=== PATIENT | male | born 2000 ===

== ENCOUNTER 2022-06-06 23:59 | Emergency (ER) | payer BC, SELFPAY ==
[2022-06-07 00:04] VITALS: PULSE 87; RESP 11; O2SAT 100
[2022-06-07 00:05] VITALS: BP 143/92; PULSE 81; RESP 18; TEMP 36.8; O2SAT 100
--- NOTE | 2022-06-07 00:11 | ED.ARRPALP ---
HPI - Arrhythmia/Palpitations General Chief Complaint: Arrhythmia/Palpitations Stated Complaint: cp Time Seen by Provider: 06/07/22 00:01 Source: patient and EMS Mode of arrival: EMS History of Present Illness HPI narrative: Patient is a 21-year-old male who was brought to the emergency department by EMS after having an episode of SVT with a heart rate of approximately to 20 while at work. When EMS arrived they had him do a vagal maneuver and he converted back to sinus rhythm again. Patient states he has had episodes like this off and on for the past several years. They happened occasionally. Not associated with any activities. He states that they last anywhere from a couple minutes to several hours. He has been evaluated in the past but he states that nothing has ever been seen on any of his testing and he has never been in to see cardiology nor had a Holter monitor. When the symptoms occur he does get somewhat lightheaded and having shortness of breath and some chest pain. He currently is asymptomatic. Related Data Allergies Allergy/AdvReac Type Severity Reaction Status Date / Time peanut Allergy Verified 06/07/22 00:05 Review of Systems Cardiovascular Cardiovascular: Reports system reviewed and no additional complaints, except as documented Respiratory Respiratory: Reports system reviewed and no additional complaints, except as documented Hematologic/Lymphatic On Anticoagulants: No Patient History Medical History Palpitations Social History Smoking Status: Current some day smoker Smoking Status: Current some day smoker tobacco type: vaping alcohol intake frequency: holidays/special occasions only Substance Use Type: does not use Exam Initial Vital Signs Initial Vital Signs: Vital Signs Pulse Rate 87 06/07/22 00:04 Respiratory Rate 11 L 06/07/22 00:04 Pulse Oximetry 100 06/07/22 00:04 Const General: cooperative and comfortable HENMT Head: normal to inspection and normocephalic Resp Effort & Inspection: normal respiratory effort Auscultation: clear to auscultation bilaterally Cardio Rate: regular rate Rhythm: regular rhythm Skin General: no rashes or lesions noted Neuro General: patient alert, patient awake and moves all extremities Extrem General: normal to inspection and capillary refill normal Course Orders Ordered: ED Orders 06/07/22 00:01 EKG-12 Lead Stat 06/07/22 00:14 Basic Metabolic Panel Stat Complete Blood Count AUTO DIFF Stat Vital Signs Vital signs: Vital Signs - 8 hr 06/07/22 00:05 06/07/22 00:04 06/07/22 00:30 Temperature 98.2 F Pulse Rate 81 87 Respiratory Rate 18 11 L Blood Pressure 143/92 H 142/88 H Pulse Oximetry 100 100 Oxygen Delivery Method Room Air 06/07/22 00:30 Temperature Pulse Rate 87 Respiratory Rate 21 Blood Pressure Pulse Oximetry 100 Oxygen Delivery Method MDM - Arrhythmia/Palpitations Lab Data Attestation: I reviewed the patient's lab results. Result diagrams: 06/07/22 00:14 06/07/22 00:14 Labs: Lab Results 06/07/22 06/07/22 Range/Units 00:14 00:14 WBC 6.7 (4.5-11.0) X10^3/uL RBC 5.00 (4.5-5.9) X10^6/uL Hgb 15.2 (13.5-17.5) g/dL Hct 42.7 (41-53) % MCV 85.3 (80-100) fL MCH 30.4 (26-34) PG MCHC 35.6 (30-36) % RDW 13.6 (11.6-14.8) % Plt Count 201 (150-400) X10^3/uL Neut % (Auto) 57.9 (50-75) % Lymph % (Auto) 30.3 (25-40) % [place] % (Auto) 7.8 (3-14) % Eos % (Auto) 3.1 (2-4) % Baso % (Auto) 0.9 (0-2) % Neut # (Auto) 3900 (3852-5646) /uL Lymph # (Auto) 2000 (1471-1537) /uL [place] # (Auto) 500 (0-900) /uL Eos # (Auto) 200 (0-450) /uL Baso # (Auto) 100 (0-100) /uL Sodium 141 (137-145) mmol/L Potassium 3.8 (3.4-5.1) mmol/L Chloride 104 (98-107) mmol/L Carbon Dioxide 23 (22-32) mmol/L BUN 18 (9-20) mg/dL Creatinine 1.06 (0.66-1.25) mg/dL Estimated GFR > 60 (>60) mL/min BUN/Creatinine Ratio 17.0 (6-22) Glucose 91 (70-100) mg/dL Calcium 9.3 (8.4-10.2) mg/dL ECG Data Attestation: I personally reviewed and interpreted this ECG as follows: Interpretation: Sinus rhythm Ventricular rate 90 Normal axis Normal QRS Normal QTC No ST T wave changes MDM Narrative Medical decision making narrative: The EMS crew was able to catch the patient's heart rhythm on their monitor and we were able to print it out and given to the patient. He was in SVT. Here in the emergency department has normal EKG. Unremarkable vital signs. Normal labs. Normal exam. Informed him that he does need to talk with his primary doctor about either a Holter monitor or referral to see Cardiology. There are no indications on the EKG consistent with WPW. Will discharge patient home with follow-up. He was given strict return precautions. He expressed understanding and agreement plan. Discharge Plan Departure Patient Disposition: Home Clinical Impression: Supraventricular tachycardia Instructions: DI for Paroxysmal Supraventricular Tachycardia Activity Restrictions/Additional Instructions: Take the printouts of the EKG that you receive this evening to your primary care doctor and discuss the indications for a Holter monitor and/or a referral to see Cardiology. Perform the maneuvers like we discussed if the symptoms happen again and return to the emergency department like we discussed as well.
[2022-06-07 00:24] LABS: Add Manual Diff / Slide Review NO; Basophils Absolute Auto 100 /uL (0-100); Basophils Percent Auto 0.9 % (0-2); Blood Urea Nitrogen 18 mg/dL (9-20); Calcium 9.3 mg/dL (8.4-10.2); Carbon Dioxide 23 mmol/L (22-32); Chloride 104 mmol/L (98-107); Eosinophils Absolute Auto 200 /uL (0-450); Eosinophils Percent Auto 3.1 % (2-4); Estimated Glomerular Filt Rate > 60 mL/min (>60); Glucose 91 mg/dL (70-100); HEMOLYSIS 66 (0-50); Hematocrit 42.7 % (41-53); Hemoglobin 15.2 g/dL (13.5-17.5); Lymphocytes Absolute Auto 2000 /uL (1100-4500); Lymphocytes Percent Auto 30.3 % (25-40); Mean Corpuscular HGB Conc 35.6 % (30-36); Mean Corpuscular Hemoglobin 30.4 PG (26-34); Mean Corpuscular Volume 85.3 fL (80-100); Monocytes Absolute Auto 500 /uL (0-900); Monocytes Percent Auto 7.8 % (3-14); Neutrophils Absolute Auto 3900 /uL (1500-7000); Neutrophils Percent Auto 57.9 % (50-75); Platelet Count 201 X10^3/uL (150-400); Red Cell Distribution Width 13.6 % (11.6-14.8); Sodium 141 mmol/L (137-145); White Blood Cell Count 6.7 X10^3/uL (4.5-11.0)
[2022-06-07 00:25] LABS: Potassium 3.8 mmol/L (3.4-5.1)
[2022-06-07 00:30] VITALS: BP 142/88; PULSE 87; RESP 21; O2SAT 100
== END 2022-06-07 00:41 | disposition home or self-care (01) ==
PROVIDERS: Emergency Provider Emergency Medicine
DX: I47.1 Supraventricular tachycardia (principal)
CPT/HCPCS: 36415; 80048; 85025; 93005; 93010; 99283; 99284